=== PATIENT | male | born 1985 | race Two or more races ===

== ENCOUNTER 2022-09-24 10:07 | Emergency (ER) | payer SELFPAY ==
[2022-09-24 13:00] LABS: BASOPHILS % (AUTO) 0.6 %; EOSINOPHILS # (AUTO) 0.1 10^3/uL (0.0-0.7); EOSINOPHILS % (AUTO) 1.9 %; HCT - HEMATOCRIT 44.3 % (42.0-52.0); HGB - HEMOGLOBIN 14.9 g/dL (14.0-18.0); LYMPHOCYTES # (AUTO) 2.4 10^3/uL (1.5-3.5); LYMPHOCYTES % (AUTO) 34.8 %; MEAN CORPUSCULAR HEMOGLOBIN 28.9 pg (27.0-31.0); MEAN CORPUSCULAR HGB CONC 33.6 g/dL (32.0-36.0); MEAN PLATELET VOLUME 8.7 fL (7.4-11.4); MONOCYTES # (AUTO) 0.4 10^3/uL (0.0-1.0); MONOCYTES % (AUTO) 6.4 %; NEUTROPHILS # (AUTO) 3.9 10^3/uL (1.5-6.6); PLT - PLATELET COUNT 200 10^3/uL (130-450); RED BLOOD COUNT 5.15 10^6/uL (4.70-6.10); WHITE BLOOD COUNT 6.9 x10^3/uL (4.8-10.8)
[2022-09-24 13:15] LABS: ALBUMIN 4.6 g/dL (3.2-5.5); ALBUMIN/GLOBULIN RATIO 1.3 (1.0-2.2); BILIRUBIN,TOTAL 1.3 mg/dL (0.2-1.0); CALCIUM 8.8 mg/dL (8.5-10.3); CREATININE 0.8 mg/dL (0.6-1.2); TOTAL PROTEIN 8.1 g/dL (6.7-8.2)
[2022-09-24 14:15] LABS: BILIRUBIN,URINE NEGATIVE (NEGATIVE); GLUCOSE, URINE (UA) NEGATIVE (NEGATIVE); KETONES,URINE (UA) NEGATIVE (NEGATIVE); LEUKOCYTE ESTERASE, URINE NEGATIVE (NEGATIVE); NITRITE,URINE NEGATIVE (NEGATIVE); OCCULT BLOOD,URINE NEGATIVE (NEGATIVE); PROTEIN,URINE NEGATIVE (NEGATIVE); UROBILINOGEN,URINE 0.2 (NORMAL) E.U./dL (NORMAL)
[2022-09-24 14:16] LABS: CLARITY,URINE CLEAR (CLEAR)
--- NOTE | 2022-09-24 14:21 | ED Physician Documentation ---
PD HPI ABD PAIN - Stated complaint Stated Complaint: ABD PX - Chief complaint Chief Complaint: Back Pain - History obtained from History obtained from: Patient - Additional information Additional information: 1 year of right flank pain. Remittance now more constant over the last months. It is associated with urinary frequency but no fevers, nausea. He does not change with eating. He denies hematuria. It does get worse when he hunches over or is in a sitting position. Review of Systems Constitutional: denies: Fever, Chills, Fatigue, Weight Loss Cardiac: denies: Chest pain / pressure, Palpitations Respiratory: denies: Dyspnea, Cough GI: denies: Abdominal Pain PD PAST MEDICAL HISTORY - Present Medications Home Medications: Ambulatory Orders Medication Instructions Recorded Confirmed No Known Home Medications 09/24/22 09/24/22 - Allergies Allergies/Adverse Reactions: Allergies Allergy/AdvReac Type Severity Reaction Status Date / Time crab Allergy Anaphylaxis Verified 09/24/22 10:20 PD ED PE NORMAL - Vitals Vital signs reviewed: Yes - General General: Alert and oriented X 3, No acute distress - HEENT HEENT: PERRL, EOMI - Neck Neck: Supple, no meningeal sign, No bony TTP - Cardiac Cardiac: RRR, No murmur - Respiratory Respiratory: No respiratory distress, Clear bilaterally - Abdomen Abdomen: Normal bowel sounds, Soft, Non tender, Other (I am unable to reproduce the pain with palpation of the right flank although he points to the right flank as the site of pain.) - Derm Derm: No rash - Neuro Neuro: Alert and oriented X 3, Normal speech Results - Vitals Vitals: Vital Signs - 24 hr 09/24/22 09/24/22 10:17 15:53 Temperature 36.2 C L Heart Rate 73 75 Respiratory 16 18 Rate Blood Pressure 129/103 H 122/76 O2 Saturation 100 95 Oxygen O2 Source Room air - Labs Labs: Laboratory Tests 09/24/22 09/24/22 09/24/22 12:25 12:54 12:54 WBC 6.9 RBC 5.15 Hgb 14.9 Hct 44.3 MCV 86.0 MCH 28.9 MCHC 33.6 RDW 12.0 Plt Count 200 MPV 8.7 Neut # (Auto) 3.9 Lymph # (Auto) 2.4 [place] # (Auto) 0.4 Eos # (Auto) 0.1 Baso # (Auto) 0.0 Absolute Nucleated RBC 0.00 Nucleated RBC % 0.0 Sodium 135 Potassium 4.0 Chloride 103 Carbon Dioxide 24 Anion Gap 8.0 BUN 11 Creatinine 0.8 Estimated GFR (MDRD) 108 Glucose 103 H Calcium 8.8 Total Bilirubin 1.3 H AST 38 ALT 92 H Alkaline Phosphatase 73 Total Protein 8.1 Albumin 4.6 Globulin 3.5 Albumin/Globulin Ratio 1.3 Lipase 46 Urine Color YELLOW Urine Clarity CLEAR Urine pH 6.0 Ur Specific [place] 1.020 Urine Protein NEGATIVE Urine Glucose (UA) NEGATIVE Urine Ketones NEGATIVE Urine Occult Blood NEGATIVE Urine Nitrite NEGATIVE Urine Bilirubin NEGATIVE Urine Urobilinogen 0.2 (NORMAL) Ur Leukocyte Esterase NEGATIVE Ur Microscopic Review NOT INDICATED Urine Culture Comments NOT INDICATED PD Medical Decision Making - ED course ED course: 37-year-old gentleman with chronic right flank pain. No abnormal exam or concerning findings on CT or labs. He does have probably fatty liver disease. He does not drink alcohol. This was discussed with him. Departure - Departure Disposition: 01 Home, Self Care Clinical Impression: Flank pain, Fatty liver, Constipation Condition: Good Record reviewed to determine appropriate education?: Yes Instructions: ED Constipation Print Language: [place]itanian Comments: Your CAT scan today shows a fatty liver and constipation. You should not use alcohol and take an jhwx-hno-hhalbyw laxative such as MiraLAX. Call your doctor to arrange a follow-up appointment, make the next available appointment. In the interim, return anytime if worse or if new symptoms develop. Alex tomografa computarizada de hoy muestra hgado graso y estreimiento. No debe usar alcohol y dana un laxante de venta jitendra luther MiraLAX. Llame a alex mdico para concertar redd yenny de seguimiento, programe la prxima yenny disponible. Mientras tanto, regrese en cualquier momento si empeora o si se desarrollan nuevos sntomas. Discharge Date/Time: 09/24/22 15:54
[2022-09-24] MEDS ORDERED: iohexoL-300 100 ML VIAL ONE (14:31)
[2022-09-24] MEDS ORDERED: iohexoL-300 100 ML VIAL IVP ONE (14:54)
--- NOTE | 2022-09-24 15:21 | CT Report ---
PROCEDURE: ABDOMEN/PELVIS W INDICATIONS: IV only R flank pain CONTRAST: 100ml Omnipaque 300 TECHNIQUE: After the administration of IV contrast, 5 mm thick sections acquired from the diaphragms to the symp hysis. 5 mm thick coronal and sagittal reformats were acquired. For radiation dose reduction, the f ollowing was used: automated exposure control, adjustment of mA and/or kV according to patient size. COMPARISON: None. FINDINGS: Image quality: Excellent. ABDOMEN: Lung bases: Lung bases are clear. Heart size is normal. Solid organs: Liver is enlarged measuring 20.8 cm with steatosis. The spleen is normal in size and e nhancement. Gallbladder is unremarkable Biliary system is non dilated. Pancreas enhances normally. No adrenal nodules. Kidneys demonstrate normal size and enhancement, without hydronephrosis. No r enal or ureteral stones. Peritoneum and bowel: Bowel loops demonstrate normal wall thickness and caliber. No free fluid or a ir. Prominent colonic stool is present without obstruction. Appendix is normal. Nodes and vessels: No retroperitoneal or mesenteric adenopathy by size criteria. Aorta and inferior vena cava are normal in size. Miscellaneous: No ventral hernias. PELVIS: Genitourinary: Bladder wall thickness is normal. Miscellaneous: No inguinal hernias or adenopathy. Bones: No suspicious bony lesions. No vertebral body compression fractures. IMPRESSION: Moderate colonic stool consistent with constipation. No obstruction. Hepatomegaly with steatosis. Reviewed by: Janett Knott MD on 09/24/2022 3:20 PM PST Approved by: Janett Knott MD on 09/24/2022 3:20 PM PST Station ID: [id number]
[2022-09-24 15:54] VITALS: BP 122/76
== END 2022-09-24 15:54 | disposition home or self-care (01) ==
LOC: ED 10:07
DX: R10.9 Unspecified abdominal pain (principal); K59.00 Constipation, unspecified; K76.0 Fatty (change of) liver, not elsewhere classified
CPT/HCPCS: 36415; 74177; 80053; 81003; 83690; 85025; 99283; 99284; Q9967; 81001; 87086